=== PATIENT | male | born 1955 | race Caucasian/White ===

== ENCOUNTER 2019-11-23 13:44 | Outpatient (CLI) | payer SELFPAY ==
--- NOTE | 2019-11-23 13:58 | ECG_ITS ---
Measurements Intervals [place] Rate: 82 P: 70 PA: 140 QRS: 72 QRSD: 89 T: 69 QT: 389 QTc: 457 Interpretive Statements SINUS RHYTHM NORMAL ECG Electronically Signed On 11-23-2019 14:13:04 CDT by Fei Alicia D.O.
== END 2019-11-23 13:45 | disposition home or self-care (01) ==
PROVIDERS: PCP Family Medicine; Visit Provider Nurse Practitioner Family
DX: R07.9 Chest pain, unspecified (principal)
CPT/HCPCS: 93005